=== PATIENT | female | born 1975 | race Caucasian/White ===

== ENCOUNTER 2018-05-24 08:49 | Emergency (ER) | payer MEDICAID ==
[~2018-05-24] VITALS: Ht 162.6 cm; Wt 81.6 kg
[2018-05-24 09:01] VITALS: BP 143/101
[2018-05-24] MEDS ORDERED: Tylenol #3 tab (300mg/30mg) ORAL ONE (09:15)
--- NOTE | 2018-05-24 09:48 | Emergency Room Report ---
History of Present Illness General Chief Complaint: Upper Extremity Injury Source: Patient Present Illness HPI 42-year-old female presents with left thumb injury when she slammed it in the door yesterday, it did not bleed anywhere, the chest pain now. She reports pain is constant, worse with palpation, otherwise is well. Allergies: Coded Allergies: No Known Allergies (Unverified , 05/24/18) Patient History Past Medical History: see triage record Last Menstrual Period: last week Now: No Reviewed Nursing Documentation: PMH: Agreed; PSxH: Agreed Nursing Documentation-PMH Past Medical History: No Stated History Review of Systems Musculoskeletal: Reports: no symptoms Skin: Reports: no symptoms Neurological: Reports: no symptoms Hematologic/Lymphatic: Reports: no symptoms Physical Exam Vital Signs Date Time Temp Pulse Resp B/P (MAP) Pulse Ox O2 Delivery O2 Flow Rate FiO2 05/24/18 09:01 98.2 85 20 143/101 96 Room Air General Appearance: well appearing, no apparent distress Head: normocephalic, atraumatic ENT: hearing grossly normal, normal voice Neck: full range of motion, supple Respiratory: no respiratory distress, speaking full sentences Musculoskeletal: no calf tenderness, swelling - R thumbnail base with subungual hematoma, tender, no paronychia Neurologic: alert, normal gait Psychiatric: mood/affect normal Skin: no rash Procedures Nail Trepanation Nail Trepanation : Consent: Verbal Nail Trepanation Location: R thumbnaiil base Method of Drainage: nail cauterized Sterile Dressing Applied: Yes Finger Splint: Yes Patient Tolerated: Well Complications: None Progress 1-2cc blood expressed, patient felt better, finger bandaged and then covered with finger protector splint Medical Decision Making Diagnostic Impression: Primary Impression: Subungual hematoma of finger of right hand ER Course Nail trephination performed, xr normal, will dc. Other X-Ray Diagnostic Results Other X-Ray Diagnostic Results : X-Ray ordered: R thumb # of Views/Limited Vs Complete: 2 View Indication: Pain EP Interpretation: Yes Interpretation: no dislocation, no soft tissue swelling Impression: No acute disease Electronically Signed by: Corey Key MD Last Vital Signs Date Time Temp Pulse Resp B/P (MAP) Pulse Ox O2 Delivery O2 Flow Rate FiO2 05/24/18 09:01 98.2 85 20 143/101 96 Room Air Disposition: HOME, SELF-CARE Condition: Stable Scripts No Active Prescriptions or Reported Meds Referrals: [facility],REFERRING (PCP) COREY KEY M.D May 24, 2018 09:48
[2018-05-24 10:24] VITALS: BP 143/101
--- NOTE | 2018-05-24 11:05 | Diagnostic Imaging Report ---
Indication: Right thumb pain Comparison: None Findings: No fracture or malalignment identified. Soft tissues are unremarkable. IMPRESSION: No acute injury
== END 2018-05-24 10:10 | disposition home or self-care (01) ==
LOC: EMR 09:22
DX: S60.111A Contusion of right thumb with damage to nail, initial encounter (principal); W23.0XXA Caught, crushed, jammed, or pinched between moving objects, initial encounter; Y92.9 Unspecified place or not applicable
CPT/HCPCS: 11740; 73140; 99283; Z7502

== ENCOUNTER 2019-01-18 08:27 | Emergency (ER) | payer MEDICAID ==
[~2019-01-18] VITALS: Ht 162.6 cm; Wt 88.5 kg
--- NOTE | 2019-01-18 08:43 | NUR ---
ED Nurse Note: pt ambulated to ed c/o epigatric abdominal pain x 1 day with 2 occurences of nausea and vomting. pt placed in gown and put on monitor.
--- NOTE | 2019-01-18 08:50 | NUR ---
ED Nurse Note: IV LINE ESTABLISHED, LINE PATENT AND INTACT. BLOOD SPECIMEN DRAWN AND SENT TO LAB. PT STATES SHE IS UNABLE TO URINATE AT THIS TIME. WILL REATTEMPT TO RETRIEVE URINE SPECIMEN AT A LATER TIME.
[2019-01-18 08:51] VITALS: BP 181/86
[2019-01-18] MEDS ORDERED: Lidocaine 2% Visc 15ml soln ORAL ONE (09:15)
[2019-01-18] MEDS ORDERED: Ketorolac 30mg Inj IV ONE (09:15)
[2019-01-18] MEDS ORDERED: Dicyclomine HCl 10mg/5ml oral soln ORAL ONE (09:15)
[2019-01-18] MEDS ORDERED: Mylanta II UD 30ml ORAL ONE (09:15)
[2019-01-18] MEDS ORDERED: Omnipaque-300 100ml vial INJ PRN (09:15)
--- NOTE | 2019-01-18 09:30 | NUR ---
ED Nurse Note: OBTAINED URINE SPECIMEN, SENT URINE TO LAB.
[2019-01-18 09:31] LABS: HEMATOCRIT 43.4 % (37.0-47.0); HEMOGLOBIN 15.6 G/DL (12.0-16.0); MEAN CORPUSCULAR VOLUME 91 FL (80-99); PLATELET COUNT 227 K/UL (150-450); RED BLOOD COUNT 4.76 M/UL (4.20-5.40); RED CELL DISTRIBUTION WIDTH 11.2 % (11.6-14.8); WHITE BLOOD COUNT 12.3 K/UL (4.8-10.8)
[2019-01-18 09:37] LABS: ANION GAP 10 mmol/L (5-15); BLOOD UREA NITROGEN 7 mg/dL (7-18); CALCIUM 8.5 MG/DL (8.5-10.1); CARBON DIOXIDE 25 MMOL/L (21-32); CHLORIDE 100 MMOL/L (98-107); CREATININE 0.8 MG/DL (0.55-1.30); POTASSIUM 3.6 MMOL/L (3.5-5.1); SODIUM 135 MMOL/L (136-145)
--- NOTE | 2019-01-18 09:40 | Emergency Room Report ---
History of Present Illness General Chief Complaint: Abdominal Pain Source: Patient Present Illness HPI Patient is a 43-year-old female presents after increased epigastric abdominal pain. Patient reports having waxing and waning pain to the epigastric area. This is unchanged by exertion. Patient had prior history of C-sections denies prior symptoms. She denies any alcohol intake. She had 2 episodes of vomiting as well as some more loose stool. She denies any significant diarrhea. reports having some increased bloating.Pain was 9 out of 10. Did not radiate to her back Allergies: Coded Allergies: No Known Allergies (Unverified , 05/24/18) Patient History Past Medical History: see triage record Past Surgical History: Last Menstrual Period: 12/28/2018 Now: No Reviewed Nursing Documentation: PMH: Agreed; PSxH: Agreed Nursing Documentation-PMH Past Medical History: No Stated History Review of Systems All Other Systems: negative except mentioned in HPI Physical Exam Vital Signs Date Time Temp Pulse Resp B/P (MAP) Pulse Ox O2 Delivery O2 Flow Rate FiO2 01/18/19 08:39 98.2 66 19 161/92 (115) 98 Room Air Sp02 EP Interpretation: reviewed, normal General Appearance: normal inspection, well appearing, no apparent distress, alert, GCS 15 Head: atraumatic ENT: normal ENT inspection, hearing grossly normal, normal voice Neck: normal inspection, full range of motion, supple, no bony tend Respiratory: normal inspection, lungs clear, normal breath sounds, no respiratory distress, no retraction, no wheezing Cardiovascular #1: regular rate, rhythm, no edema Gastrointestinal: normal inspection, normal bowel sounds, non tender, soft, no guarding, no hernia Genitourinary: no CVA tenderness Musculoskeletal: normal inspection, back normal, normal range of motion Neurologic: normal inspection, alert, oriented x3, responsive, tube mounter III-XII nml as tested, speech normal Psychiatric: normal inspection, judgement/insight normal, mood/affect normal Medical Decision Making Diagnostic Impression: Primary Impression: Cholelithiasis ER Course Patient presented for abdominal pain. Differential diagnosis include was not limited to colitis, gastroenteritis, pancreatitis, inferior [place], among others. Because of complexity of patient's case laboratory tests and imaging studies were ordered.CT of abdomen pelvis read by radiology showed cholelithiasis with questionable gallbladder wall thickening. Patient did not have any right upper quadrant tenderness at this time. Patient's laboratory testing did show some minimal elevation of her white blood count. Patient was given IV antibiotics. Urinalysis did show some slight urinary infection. She was given prescriptions for medications for symptomatic treatment. Patient was advised to follow-up with her primary care physician for outpatient surgery referral for cholecystectomy and she was also advised dietary modification. She is to return if worse. She was given return precautions. Labs Test 01/18/19 08:50 01/18/19 09:35 White Blood Count 12.3 K/UL (4.8-10.8) Red Blood Count 4.76 M/UL (4.20-5.40) Hemoglobin 15.6 G/DL (12.0-16.0) Hematocrit 43.4 % (37.0-47.0) Mean Corpuscular Volume 91 FL (80-99) Mean Corpuscular Hemoglobin 32.7 PG (27.0-31.0) Mean Corpuscular Hemoglobin Concent 35.8 G/DL (32.0-36.0) Red Cell Distribution Width 11.2 % (11.6-14.8) Platelet Count 227 K/UL (150-450) Mean Platelet Volume 6.2 FL (6.5-10.1) Neutrophils (%) (Auto) % (45.0-75.0) Lymphocytes (%) (Auto) % (20.0-45.0) Monocytes (%) (Auto) % (1.0-10.0) Eosinophils (%) (Auto) % (0.0-3.0) Basophils (%) (Auto) % (0.0-2.0) Differential Total Cells Counted 100 Neutrophils % (Manual) 91 % (45-75) Lymphocytes % (Manual) 6 % (20-45) Monocytes % (Manual) 2 % (1-10) Eosinophils % (Manual) 0 % (0-3) Basophils % (Manual) 0 % (0-2) Band Neutrophils 1 % (0-8) Platelet Estimate Adequate Platelet Morphology Normal Red Blood Cell Morphology Normal Sodium Level 135 MMOL/L (136-145) Potassium Level 3.6 MMOL/L (3.5-5.1) Chloride Level 100 MMOL/L (98-107) Carbon Dioxide Level 25 MMOL/L (21-32) Anion Gap 10 mmol/L (5-15) Blood Urea Nitrogen 7 mg/dL (7-18) Creatinine 0.8 MG/DL (0.55-1.30) Estimat Glomerular Filtration Rate > 60 mL/min (>60) Glucose Level 129 MG/DL (74-106) Calcium Level 8.5 MG/DL (8.5-10.1) Total Bilirubin 0.6 MG/DL (0.2-1.0) Aspartate Amino Transf (AST/SGOT) 19 U/L (15-37) Alanine Aminotransferase (ALT/SGPT) 25 U/L (12-78) Alkaline Phosphatase 58 U/L (46-116) Troponin I 0.000 ng/mL (0.000-0.056) Total Protein 8.0 G/DL (6.4-8.2) Albumin 4.0 G/DL (3.4-5.0) Globulin 4.0 g/dL Albumin/Globulin Ratio 1.0 (1.0-2.7) Lipase 101 U/L (73-393) Urine Color Yellow Urine Appearance Slightly cloudy Urine pH 5 (4.5-8.0) Urine Specific [place] 1.015 (1.005-1.035) Urine Protein 1+ (NEGATIVE) Urine Glucose (UA) Negative (NEGATIVE) Urine Ketones 4+ (NEGATIVE) Urine Blood 2+ (NEGATIVE) Urine Nitrite Negative (NEGATIVE) Urine Bilirubin Negative (NEGATIVE) Urine Urobilinogen Normal MG/DL (0.0-1.0) Urine Leukocyte Esterase 1+ (NEGATIVE) Urine RBC 5-10 /HPF (0 - 2) Urine WBC 2-4 /HPF (0 - 2) Urine Squamous Epithelial Cells Few /LPF (NONE/OCC) Urine Bacteria Few /HPF (NONE) Urine HCG, Qualitative Negative (NEGATIVE) Last Vital Signs Date Time Temp Pulse Resp B/P (MAP) Pulse Ox O2 Delivery O2 Flow Rate FiO2 01/18/19 08:51 57 14 Room Air 01/18/19 08:51 98.3 181/86 99 Status: improved Disposition: ADMITTED INPATIENT Condition: Stable Scripts Cephalexin* (KEFLEX*) 500 Mg Capsule 500 MG ORAL EVERY 6 HOURS, #28 CAP Prov: Art Iniguez MD 01/18/19 Hydrocodone Bit/Acetaminophen 5-325* (NORCO 5-325*) 1 Each Tablet 1 TAB ORAL Q6H PRN for For Pain, #20 TAB 0 Refills Prov: Art Iniguez MD 01/18/19 Dicyclomine Hcl* (DICYCLOMINE HCL*) 10 Mg Capsule 10 MG ORAL QID, #20 CAP Prov: Art Iniguez MD 01/18/19 Referrals: NON PHYSICIAN (PCP) Art Iniguez MD Jan 18, 2019 09:40
[2019-01-18 09:42] LABS: ALANINE AMINOTRANSFERASE 25 U/L (12-78); ALKALINE PHOSPHATASE 58 U/L (46-116); ASPARTATE AMINO TRANSFERASE 19 U/L (15-37); BILIRUBIN,TOTAL 0.6 MG/DL (0.2-1.0)
[2019-01-18 09:50] VITALS: BP 163/76
[2019-01-18 10:01] LABS: APPEARANCE,URINE SLIGHTLY CLOUDY; BILIRUBIN, URINE NEGATIVE (NEGATIVE); GLUCOSE, URINE (UA) NEGATIVE (NEGATIVE); KETONES,URINE 4+ (NEGATIVE); LEUKOCYTE ESTERASE ,URINE 1+ (NEGATIVE); NITRITE,URINE NEGATIVE (NEGATIVE); PH,URINE 5 (4.5-8.0); PROTEIN,URINE 1+ (NEGATIVE); UROBILINOGEN,URINE NORMAL MG/DL (0.0-1.0)
[2019-01-18 10:02] LABS: COLOR,URINE YELLOW
--- NOTE | 2019-01-18 10:15 | NUR ---
ED Nurse Note: PT TAKEN TO CT
--- NOTE | 2019-01-18 10:27 | NUR ---
ED Nurse Note: PT RETURNED FROM CT
--- NOTE | 2019-01-18 10:31 | NUR ---
ED Nurse Note: PT REPORTS 4/10 PAIN, PT DOES NOT WANT FURTHER PAIN MEDICATIONS AT THIS TIME. PER PT "PAIN IS MUCH BETTER NOW"
--- NOTE | 2019-01-18 10:50 | Diagnostic Imaging Report ---
Indication: Abdominal pain Technique: Continuous helical transaxial imaging of the abdomen and pelvis was obtained from the lung bases to the pubic symphysis during intravenous contrast administration. Coronal 2-D reformats were also obtained. Study obtained in a Siemens sensation [address] Automatic Exposure Control was utilized. Total Dose length Product (DLP): 1033.[address] Dose Index Volume (CTDIvol): 17.6 mGy Comparison: None Findings: Lung bases are clear. Multiple gallstones are present. There is questionable mild gallbladder wall thickening. Correlate clinically for cholecystitis. The liver and spleen are unremarkable. Pancreas is unremarkable. There is no hydronephrosis. Kidney enhancement is normal bilaterally. Appendix is normal. Uterus is noted. Bowel gas pattern is nonobstructive. There is no free fluid. There is a tiny umbilical hernia containing fat. IMPRESSION: Cholelithiasis. Mild gallbladder wall thickening may be present. Please correlate clinically for cholecystitis. Tiny umbilical hernia containing fat. The CT scanner at [facility] is accredited by the [employer] and the scans are performed using dose optimization techniques as appropriate to a performed exam including Automatic Exposure control.
[2019-01-18] MEDS ORDERED: cefTRIAXone 1 GM in NS 55 ML IVPB ONE (11:00)
[2019-01-18] MEDS ORDERED: DICYCLOMINE HCL10 MG ORAL (11:33)
[2019-01-18] MEDS ORDERED: CEPHALEXIN500 MG ORAL (11:33)
[2019-01-18] MEDS ORDERED: NORCO 5-325 TA1 EACH ORAL (11:33)
[2019-01-18 11:47] VITALS: BP 155/68
--- NOTE | 2019-01-18 11:47 | NUR ---
ER DISCHARGE NOTE: Patient is cleared to be discharged per ERMD, pt is aox4, on room air, with stable vital signs. pt was given dc and prescription instructions, pt was able to verbalize understanding, pt id band and iv site removed without complications. pt is able to ambulate with steady gait. pt took all belongings.
--- NOTE | 2019-01-19 10:51 | Cardiology Report ---
APPROVED REPORT EKG Measurement Heart [id number] Normal sinus rhythm with sinus arrhythmia Nonspecific ST abnormality Abnormal ECG
== END 2019-01-18 11:47 | disposition home or self-care (01) ==
LOC: EMR 09:16
DX: K80.20 Calculus of gallbladder without cholecystitis without obstruction (principal)
CPT/HCPCS: 36415; 74177; 80053; 81003; 81025; 83690; 84484; 85007; 85025; 93005; 96365; 96375; J0696; J1885; J2405; Q9967; Z7502; 99284